=== PATIENT | female | born 1970 | race Caucasian/White ===

== ENCOUNTER → 2016-07-21 | Outpatient (CLI) | payer BC ==
[~2016-07-21] MED LIST: BALANCED SALT SOLN OPHTH 15 ML BTL XX ONE; CONRAY-43 43% 50ML VIAL (Q9960) As Ordered ONE; ISOVUE-300 61% 50ML VIAL (Q9967) As Ordered ONE; PROPARACAINE 0.5% OPHTH SOL 15ML XX ONE
--- NOTE | 2016-07-21 16:47 | REP ---
Unilateral right sided dacryocystography: History: Stenosis of the nasolacrimal duct. Right-sided tearing. 10 seconds of fluoroscopy time utilized. 20 fluoroscopic spot films. Technique: The inferior canaliculus was cannulated by Dr. Gurpreet De La Torre and contrast was injected under rapid sequence spot filming. Findings: Sequential films of the right orbit during contrast injection demonstrate filling of a normal inferior canaliculus and reflux of the normal superior canaliculus. The common canaliculus appears unremarkable. The nasal lacrimal sac and nasal lacrimal duct are dilated. The nasal lacrimal duct is obstructed. No contrast is seen spilling into the nasopharynx. 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 Signed by Javon Crespo MD 07/21/2016 04:48 P
== END ==
LOC: M RADPRO 13:57 → MERGE 14:30
PROVIDERS: ATTEND Ophthalmology
DX: H04.551 Acquired stenosis of right nasolacrimal duct (principal)
CPT/HCPCS: 68850; 70170; Q9967

== ENCOUNTER 2017-02-15 08:37 | Day surgery (SDC) | payer BC ==
[~2017-02-15] VITALS: Ht 157.5 cm; Wt 62.6 kg
[~2017-02-15 08:37] MED LIST changes: +ALL10TAB27 PO; -BALANCED SALT SOLN OPHTH 15 ML BTL XX ONE; -CONRAY-43 43% 50ML VIAL (Q9960) As Ordered ONE; -ISOVUE-300 61% 50ML VIAL (Q9967) As Ordered ONE; -PROPARACAINE 0.5% OPHTH SOL 15ML XX ONE; +VITA100067 PO
[2017-02-15 08:58] VITALS: BP 128/60
[2017-02-15] MEDS ORDERED: LR 1,000 ML IV ONE (09:00)
[2017-02-15] MEDS ORDERED: LIDOCAINE 1% MDV 20ML VIAL SC ONE (09:00)
[2017-02-15 09:15] LABS: CONTROL LINE UCG INT CTR LINE PRESENT
[2017-02-15] MEDS ORDERED: fentaNYL 100 MCG/2 ML INJECTION (J3010) As Ordered ONE (09:17)
[2017-02-15] MEDS ORDERED: MIDAZOLAM INJ 2 MG/2 ML VIAL (J2250) As Ordered ONE (09:17)
[2017-02-16] MEDS ORDERED: PROPOFOL 200 MG/20 ML VIAL As Ordered ONE (10:10)
[2017-02-16] MEDS ORDERED: LIDOCAINE 2% INJ 100 MG/5 ML SDV (FOR ANES.) As Ordered ONE (10:10)
== END 2017-02-15 10:00 | disposition home or self-care (01) ==
LOC: M SDC 08:37
PROVIDERS: ATTEND Otolaryngology
DX: Z53.09 Procedure and treatment not carried out because of other contraindication (principal)

== ENCOUNTER 2017-03-02 08:48 | Day surgery (SDC) | payer BC ==
[~2017-03-02 08:48] MED LIST changes: +LIDOCAINE 2% INJ 100 MG/5 ML SDV (FOR ANES.) As Ordered ONE; +ONDANSETRON 4MG/2ML VIAL (J2405) As Ordered ONE; +PROPOFOL 200 MG/20 ML VIAL As Ordered ONE; +ROCURONIUM BROMIDE 50 MG/5 ML VIAL/SYRINGE As Ordered ONE; +dexameTHASONE 4 MG/ML 1ML VIAL (J1100) As Ordered ONE
[2017-03-02] MEDS ORDERED: LR 1,000 ML IV ONE (09:00)
[2017-03-02] MEDS ORDERED: LIDOCAINE 1% SDV 5 ML VIAL SQ ONE (09:00)
[2017-03-02 09:25] LABS: CONTROL LINE UCG INT CTR LINE PRESENT
[2017-03-02] MEDS ORDERED: EPINEPHrine 1MG/ML INJ 30ML MD-VIAL As Ordered ONE (10:46)
[2017-03-02] MEDS ORDERED: METHYLENE BLUE 0.5% (5MG/ML) 10 ML AMP (PROVAYBLUE)(Q9968 PER 1MG) As Ordered ONE (10:46)
[2017-03-02] MEDS ORDERED: LIDOCAINE W/EPINEPHRINE 1% 20ML VIAL As Ordered ONE (10:46)
[2017-03-02] MEDS ORDERED: fentaNYL 100 MCG/2 ML INJECTION (J3010) As Ordered ONE ×2 (10:53→11:56)
[2017-03-02] MEDS ORDERED: MIDAZOLAM INJ 2 MG/2 ML VIAL (J2250) As Ordered ONE (10:53)
[2017-03-02] MEDS ORDERED: ROCURONIUM BROMIDE 50 MG/5 ML VIAL/SYRINGE As Ordered ONE (12:34)
[2017-03-02] MEDS: PERCOCET 5MG/325MG TAB PO PRN ×2 (13:25→14:15)
[2017-03-02] MEDS: fentaNYL 100 MCG/2 ML INJECTION (J3010) IV PRN ×3 (13:26→13:42)
[2017-03-02] MEDS ORDERED: ONDANSETRON 4MG/2ML VIAL (J2405) IV PRN (13:30)
[2017-03-02] MEDS ORDERED: LR 1,000 ML IV SCH (13:30)
[2017-03-02 16:00] VITALS: BP 112/69
--- NOTE | 2017-03-02 21:22 | RO ---
DATE OF PROCEDURE: 03/02/2017 PREOPERATIVE DIAGNOSES: Right nasal lacrimal duct obstruction. POSTOPERATIVE DIAGNOSES: Right nasal lacrimal duct obstruction. OPERATIVE PROCEDURE: Septoplasty and right endoscopic dacryocystorhinostomy (DCR). FINDINGS: There was some purulent fluid within the lacrimal sac. There was a lot of scarring in the area. SURGEON: Daniel Wasserman MD [employer]: ANESTHESIA: General anesthesia. DESCRIPTION OF PROCEDURE: Under general anesthesia, with the patient intubated, the patient was prepped and draped in the usual manner. I used pledgets of 1:100,000 infiltrated with lidocaine and epinephrine. I made an incision anteriorly along the septum, I elevated the subperichondrial periosteal plane. I the quadrangular cartilage and the ethmoid plate, maxillary crest and I removed portions of the cartilage and ethmoid plate, and maxillary crest which were deviated. Once this was done, the septum was straight, so the incision was closed with #4-0 Vicryl. Then I removed the mucosa over the area on the lateral nasal wall anterior to the middle turbinate. I used the drill end to drill down the bone off of this area. Once this was done then I probed the inferior and superior canalicula. The opening to the inferior canaliculus extended medial as if it was longer lateral to medial as a slit rather than a circular opening. I used light pipe. I identified the lacrimal sac inside the nose. I used a sickle knife and made an incision into the lacrimal sac. I then passed a probe from the inferior canaliculus into the inside of the nose. A stent was placed through this inferior canaliculus into the nose. The same procedure was performed for the superior canaliculus. I tied the stent inside the nose. I made sure it was loose in medial canthus. Bleeding was controlled with pledgets of adrenalin 1:100,000. I put some Gelfoam inside the nose. The patient tolerated the procedure well, was extubated and transferred to the recovery room in excellent condition. Less than 10 mL estimated blood loss. MTDD
== END 2017-03-02 16:36 | disposition home or self-care (01) ==
LOC: M SDC 08:48
PROVIDERS: ATTEND Otolaryngology
DX: J34.2 Deviated nasal septum (principal); H04.551 Acquired stenosis of right nasolacrimal duct; H04.301 Unspecified dacryocystitis of right lacrimal passage; Z79.899 Other long term (current) drug therapy
CPT/HCPCS: 30520; 31239; 84703; 88300; J1100; J2250; J2405; J3010; Q9968

== ENCOUNTER 2017-05-31 09:14 | Day surgery (SDC) | payer BC ==
[2017-05-31 09:41] LABS: CONTROL LINE UCG INT CTR LINE PRESENT; URINE PREG TEST NEGATIVE (NEGATIVE)
[2017-05-31] MEDS ORDERED: SUCCINYLCHOLINE 100 MG/5 ML SYRINGE (J0330) As Ordered (10:58)
[2017-05-31] MEDS ORDERED: PHENYLephrine HCL 500 MCG/5 ML (100MCG/ML) SYRINGE (J2370) As Ordered (10:58)
[2017-05-31] MEDS ORDERED: ROCURONIUM BROMIDE 50 MG/5 ML VIAL As Ordered (10:58)
[2017-05-31] MEDS ORDERED: PROPOFOL 200 MG/20 ML VIAL As Ordered (10:58)
[2017-05-31] MEDS ORDERED: MIDAZOLAM INJ 2 MG/2 ML VIAL (J2250) As Ordered (10:58)
[2017-05-31] MEDS ORDERED: LIDOCAINE 2% INJ 100 MG/5 ML SDV (FOR ANES.) As Ordered (10:58)
[2017-05-31] MEDS ORDERED: fentaNYL 100 MCG/2 ML INJECTION (J3010) As Ordered (10:58)
[2017-05-31] MEDS ORDERED: dexameTHASONE 4 MG/ML 1ML VIAL (J1100) As Ordered ×2 (10:58)
[2017-05-31] MEDS ORDERED: ONDANSETRON 4MG/2ML VIAL (J2405) As Ordered (11:04)
[2017-05-31] MEDS: EPINEPHrine 1MG/ML INJ 30ML MD-VIAL As Ordered (11:12)
[2017-05-31] MEDS: LR 1,000 ML IV (11:12)
[2017-05-31] MEDS: LIDOCAINE W/EPINEPHRINE 1% 20ML VIAL As Ordered (11:12)
[2017-05-31] MEDS: METHYLENE BLUE 0.5% (5MG/ML) 10 ML AMP (PROVAYBLUE)(Q9968 PER 1MG) As Ordered (11:12)
[2017-05-31] MEDS ORDERED: PERCOCET 5MG/325MG TAB PO (12:00)
[2017-05-31] MEDS ORDERED: LR 1,000 ML IV ×2 (12:00)
[2017-05-31] MEDS ORDERED: ONDANSETRON 4MG/2ML VIAL (J2405) IV (12:00)
== END 2017-05-31 13:50 | disposition home or self-care (01) ==
LOC: M SDC 09:14
DX: H04.551 Acquired stenosis of right nasolacrimal duct (principal); H04.301 Unspecified dacryocystitis of right lacrimal passage
CPT/HCPCS: 31299

== ENCOUNTER → 2022-07-05 | Outpatient (CLI) | payer BC ==
[~2022-07-05] MED LIST changes: -ALL10TAB27 PO; +CETI-24 PO; -LIDOCAINE 2% INJ 100 MG/5 ML SDV (FOR ANES.) As Ordered ONE; +LINZ72CA; -ONDANSETRON 4MG/2ML VIAL (J2405) As Ordered ONE; -PROPOFOL 200 MG/20 ML VIAL As Ordered ONE; -ROCURONIUM BROMIDE 50 MG/5 ML VIAL/SYRINGE As Ordered ONE; +TRET0.0540; +VITA100093 PO; -dexameTHASONE 4 MG/ML 1ML VIAL (J1100) As Ordered ONE
== END ==
LOC: M LABSMTC 10:10
PROVIDERS: ATTEND Anesthesiology
DX: Z01.812 Encounter for preprocedural laboratory examination (principal); Z11.52 Encounter for screening for COVID-19

== ENCOUNTER 2022-07-08 06:14 | Day surgery (SDC) | payer BC ==
[~2022-07-08] VITALS: Ht 157.5 cm; Wt 68.0 kg
[~2022-07-08 06:14] MED LIST changes: +ceFAZolin SOD 2 GM in IV 1 EA IV ONE
[2022-07-08] MEDS ORDERED: LR 1,000 ML IV SCH ×3 (06:55→09:55)
[2022-07-08 07:01] LABS: HEMATOCRIT 40.4 % (36.0-47.0); HEMOGLOBIN 13.8 g/dl (12.0-15.5); MEAN CORPUSCULAR HEMOGLOBIN 30.1 pg (27.0-33.0); MEAN CORPUSCULAR HGB CONC 34.2 g/dl (32.0-36.5); PLATELET COUNT, AUTOMATED 299 10^3/uL (150-450); RED BLOOD COUNT 4.59 10^6/uL (4.00-5.40); WHITE BLOOD COUNT 6.5 10^3/uL (4.0-10.0)
[2022-07-08 07:16] LABS: BLOOD UREA NITROGEN 12 MG/DL (9-23); CARBON DIOXIDE LEVEL 25 MMOL/L (20-31); CHLORIDE LEVEL 107 MMOL/L (98-107); CREATININE FOR GFR 0.96 MG/DL (0.55-1.30); GLOMERULAR FILTRATION RATE > 60.0 (>51); GLUCOSE, FASTING 94 MG/DL (60-100); SODIUM LEVEL 136 MMOL/L (136-145)
[2022-07-08] MEDS ORDERED: FLUORESCEIN 10% (100MG/ML) 5ML VIAL As Ordered ONE (07:17)
[2022-07-08] MEDS ORDERED: BUPIVACAINE/EPIN 0.25% 30ML VIAL As Ordered ONE (07:17)
[2022-07-08] MEDS ORDERED: MIDAZOLAM INJ 2MG/2ML VIAL As Ordered ONE (07:19)
[2022-07-08] MEDS ORDERED: fentaNYL 250 MCG/5 ML INJECTION As Ordered ONE (07:19)
[2022-07-08] MEDS ORDERED: LIDOCAINE 2% 100MG/5ML SDV (FOR ANES.) As Ordered ONE (07:19)
[2022-07-08] MEDS ORDERED: propofoL 200 MG/20 ML VIAL As Ordered ONE (07:19)
[2022-07-08] MEDS ORDERED: ROCURONIUM BROMIDE 50MG/5ML VIAL As Ordered ONE (07:19)
[2022-07-08] MEDS ORDERED: SUGAMMADEX SODIUM 500 MG/5 ML VIAL (BRIDION) As Ordered ONE (08:13)
[2022-07-08] MEDS ORDERED: ONDANSETRON 4MG 2ML VIAL As Ordered ONE (08:13)
[2022-07-08] MEDS ORDERED: METOCLOPRAMIDE INJ 10MG/2ML VIAL As Ordered ONE (08:13)
[2022-07-08] MEDS ORDERED: ACETAMINOPHEN 1000MG 100ML IV BAG As Ordered ONE (08:13)
[2022-07-08] MEDS ORDERED: KETOROLAC 60MG 2ML VIAL As Ordered ONE (08:13)
[2022-07-08] MEDS ORDERED: HYDROmorphone HCL 2MG/ML 1ML VIAL As Ordered ONE (08:36)
[2022-07-08] MEDS ORDERED: ONDANSETRON 4MG 2ML VIAL IV PRN (09:45)
[2022-07-08] MEDS ORDERED: oxyCODONE 5MG TAB PO PRN (09:45)
[2022-07-08] MEDS ORDERED: fentaNYL 100 MCG/2 ML INJECTION IV PRN (09:45)
[2022-07-08] MEDS ORDERED: PERC5TAB12 PO (09:49)
[2022-07-08] MEDS ORDERED: PERCOCET 5MG/325MG TAB PO PRN (10:00)
[2022-07-08] MEDS: HYDROMORPHONE HCL 0.5 MG/ 0.5 ML SYRINGE IV PRN ×2 (11:06→11:11)
[2022-07-08 11:58] VITALS: BP 124/63
[2022-07-08] MEDS ORDERED: SIMETHICONE 80MG CHEW TAB PO SCH (12:00)
[2022-07-08] MEDS ORDERED: IBUPROFEN 800 MG TAB PO SCH (14:00)
== END 2022-07-08 13:13 | disposition home or self-care (01) ==
LOC: M SDC 06:14
PROVIDERS: ATTEND Obstetrics & Gynecology
DX: N80.03 Adenomyosis of the uterus (principal); D25.9 Leiomyoma of uterus, unspecified; R10.2 Pelvic and perineal pain; N81.4 Uterovaginal prolapse, unspecified; K66.0 Peritoneal adhesions (postprocedural) (postinfection); Z79.899 Other long term (current) drug therapy
CPT/HCPCS: 36415; 49329; 58573; 80048; 81025; 85027; 86850; 86900; 86901; 88307; J0131; J0690; J1100; J1170; J1885; J2250; J2405; J2765; J3010; S0020; S2900